=== PATIENT | female | born 1955 | race Caucasian/White ===

== ENCOUNTER 2017-09-07 18:49 | Emergency (ER) | payer BC ==
[~2017-09-07] VITALS: Ht 157.5 cm; Wt 62.1 kg
[~2017-09-07 18:49] MED LIST: CARI350 PO; CETI5; CYCL10 PO; DULO30; FEXO60 PO; HYDACE5 PO; LEVSOD100; LEVSOD88 PO; NAPR500 PO; PROM25 PO; RXPROM25 PO
[2017-09-07] MEDS ORDERED: ACYC400 PO (19:01)
[2017-09-07 19:19] LABS: BASOPHILS ABSOLUTE AUTO 0.01 K/mm3 (0.00-0.23); BASOPHILS PERCENT AUTO 0 % (0-2); EOSINOPHILS ABSOLUTE AUTO 0.07 K/mm3 (0.00-0.68); EOSINOPHILS PERCENT AUTO 1 % (0-6); Hemoglobin 14.4 g/dL (11.5-16.0); IMMATURE GRAN ABSOLUTE AUTO 0.01 K/mm3 (0.00-0.10); IMMATURE GRAN PERCENT AUTO 0 % (0-1); LYMPHOCYTES ABSOLUTE AUTO 2.55 K/mm3 (0.84-5.20); LYMPHOCYTES PERCENT AUTO 45 % (21-46); MONOCYTES ABSOLUTE AUTO 0.37 K/mm3 (0.16-1.47); MONOCYTES PERCENT AUTO 7 % (4-13); Mean Corpuscular HGB 29.4 pg (26.0-34.0); Mean Corpuscular HGB Conc 32.7 g/dL (31.5-36.5); Mean Corpuscular Volume 90 fL (80-100); NEUTROPHILS ABSOLUTE AUTO 2.64 K/mm3 (1.96-9.15); NEUTROPHILS PERCENT AUTO 47 % (41-73); Platelet Count 214 K/mm3 (150-400); RDW Coefficient Variation 11.8 % (11.7-14.2); RDW Standard Deviation 38.8 fL (35.1-46.3); White Blood Cell Count 5.65 K/mm3 (4.00-11.30)
[2017-09-07 19:42] LABS: Troponin I <0.015 ng/mL (0.000-0.040)
[2017-09-07 19:47] LABS: Alanine Aminotransfer (ALT/SGP 43 U/L (12-78); Albumin, Blood 4.1 g/dL (3.4-5.0); Alk Phos 93 U/L (50-136); Anion Gap 7 mmol/L (6-16); Aspartate Aminotrans (AST/SGOT 30 U/L (12-37); Bilirubin, Total 0.3 mg/dL (0.1-1.0); Blood Urea Nitrogen 13 mg/dL (8-24); CO2, Blood 27 mmol/L (21-32); Calcium, Blood 9.5 mg/dL (8.5-10.1); Chloride, Blood 108 mmol/L (98-108); Creatinine, Blood 0.65 mg/dL (0.40-1.00); Globulin, Blood 4.1 g/dL (2.2-4.0); Glomerular Filtration Rate >60 (60-); Glucose, Blood 96 mg/dL (70-99); Potassium, Blood 3.9 mmol/L (3.5-5.5); Sodium, Blood 142 mmol/L (136-145); Total Protein, Blood 8.2 g/dL (6.4-8.2)
== END 2017-09-07 21:02 | disposition home or self-care (01) ==
LOC: ER 18:49
PROVIDERS: Emergency Medicine
DX: R07.9 Chest pain, unspecified (principal); Z88.5 Allergy status to narcotic agent; Z88.8 Allergy status to other drugs, medicaments and biological substances; Z79.899 Other long term (current) drug therapy
CPT/HCPCS: 36415; 71046; 80053; 84484; 85025; 93005; 93010; 99283

== ENCOUNTER → 2018-02-13 | Outpatient (CLI) | payer BC ==
[~2018-02-13] MED LIST changes: +ACYC400 PO
== END ==
LOC: LAB SHORT 16:19 → LAB EV 16:19
DX: J02.9 Acute pharyngitis, unspecified (principal)
CPT/HCPCS: 87070

== ENCOUNTER → 2019-01-23 | Outpatient (CLI) | payer BC | END | disposition home or self-care (01) | LOC: LAB EV 14:58 → LAB SHORT 14:58 | DX: R53.83 Other fatigue (principal) | CPT/HCPCS: 87086 ==

== ENCOUNTER 2023-03-10 08:42 | Day surgery (SDC) | payer MEDICARE | END 2023-03-10 22:42 | disposition home or self-care (01) | LOC: MOI MAM 08:42 | DX: R92.0 Mammographic microcalcification found on diagnostic imaging of breast (principal) | CPT/HCPCS: 19081; A4648 ==

== ENCOUNTER → 2024-06-16 | Outpatient (CLI) | payer OTHER ==
[2024-06-16 16:28] LABS: Free Thyroxine 1.1 ng/dL (0.70-1.60); Thyroid Stimulating Hormone 0.426 uIU/mL (0.360-4.800)
[2024-06-16 17:34] LABS: C-REACTIVE PROTEIN, EXT RANGE <0.290 mg/dL (0.000-0.300)
[2024-06-16 17:45] LABS: Triiodothyronine, Free 2.74 pg/mL (2.18-3.98)
[2024-06-18 05:07] LABS: THYROGLOBULIN ANTIBODY 1.1 IU/mL (0.0-4.0); THYROID PEROXIDASE (TPO) AB 846.6 IU/mL (0.0-9.0)
== END ==
LOC: LAB 16:04 → LAB SHORT 16:04
PROVIDERS: Physician Assistant Surgical
DX: E06.3 Autoimmune thyroiditis (principal); R20.2 Paresthesia of skin
CPT/HCPCS: 84439; 84443; 84481; 85651; 86140; 86376; 86800

== ENCOUNTER → 2024-09-13 | Outpatient (CLI) | payer OTHER | LOC: LAB 07:15 → LAB SHORT 07:15 | PROVIDERS: Internal Medicine Endocrinology, Diabetes & Metabolism | DX: E03.8 Other specified hypothyroidism (principal) | CPT/HCPCS: 83018 ==

== ENCOUNTER 2025-06-23 15:55 | Observation (INO) | payer OTHER ==
[~2025-06-23] VITALS: Ht 157.5 cm; Wt 63.8 kg
[~2025-06-23 15:55] MED LIST changes: -ASPI81CH PO; -ATOR40TA PO; -IBUP400 PO; -LEVOTHYROXINE PO; -METO25ER PO; -NITR.4SL SL
[2025-06-23 16:29] LABS: BASOPHILS ABSOLUTE AUTO 0.03 K/mm3 (0.00-0.23); BASOPHILS PERCENT AUTO 0 % (0-2); EOSINOPHILS ABSOLUTE AUTO 0.03 K/mm3 (0.00-0.68); EOSINOPHILS PERCENT AUTO 0 % (0-6); Hematocrit 42.7 % (33.0-51.0); Hemoglobin 14.1 g/dL (11.5-16.0); IMMATURE GRAN ABSOLUTE AUTO 0.01 K/mm3 (0.00-0.10); IMMATURE GRAN PERCENT AUTO 0 % (0-1); LYMPHOCYTES ABSOLUTE AUTO 3.19 K/mm3 (0.84-5.20); LYMPHOCYTES PERCENT AUTO 39 % (21-46); MONOCYTES ABSOLUTE AUTO 0.54 K/mm3 (0.16-1.47); MONOCYTES PERCENT AUTO 7 % (4-13); Mean Corpuscular HGB Conc 33.0 g/dL (31.5-36.5); Mean Corpuscular Volume 94 fL (80-100); NEUTROPHILS ABSOLUTE AUTO 4.45 K/mm3 (1.96-9.15); NEUTROPHILS PERCENT AUTO 54 % (41-73); NRBC ABSOLUTE 0.00 K/mm3 (0.00-0.02); NRBC Auto 0.0 /100 WBC (0.0-0.2); Platelet Count 221 K/mm3 (150-400); RDW Coefficient Variation 11.9 % (11.7-14.2); RDW Standard Deviation 41.0 fL (35.1-46.3)
[2025-06-23 17:09] LABS: Anion Gap 10.0 mmol/L (3-11); Blood Urea Nitrogen 15.0 mg/dL (8-24); CO2, Blood 24.0 mmol/L (21-32); Calcium, Blood 9.1 mg/dL (8.5-10.1); Chloride, Blood 108.0 mmol/L (98-108); Creatinine, Blood 0.59 mg/dL (0.40-1.00); Glucose, Blood 90.0 mg/dL (70-99); Magnesium, Blood 2.0 mg/dL (1.6-2.4); Potassium, Blood 3.5 mmol/L (3.5-5.5); Sodium, Blood 138.0 mmol/L (136-145)
[2025-06-23 17:49] LABS: Anti-Xa UFH, PHA Monitoring <0.10 IU/mL; Prothrombin Time Results 11.8 Sec (9.7-11.5)
[2025-06-23] MEDS ORDERED: FentaNYL Citrate 50 MCG/ML 2 ML Injection IV PRN (18:00)
[2025-06-23] MEDS ORDERED: Ondansetron HCl 2 MG / ML 2ML Vial IV PRN (18:05)
[2025-06-23] MEDS ORDERED: Heparin Sodium,Porcine/0.5 NS 500 ML IV SCH (18:10)
[2025-06-23] MEDS ORDERED: Heparin Sodium 5000 Units/ML 1ML MDV IV ONE (18:10)
[2025-06-23] MEDS ORDERED: FLU VACC TS2025(65UP)/MF59C/PF 45 MCG/0.5 ML SYRINGE IM SCH (18:50)
[2025-06-23] MEDS ORDERED: NS 1,000 ML IV SCH (19:00)
[2025-06-23 19:01] VITALS: BP 152/84
[2025-06-23 19:29] VITALS: BP 152/81
--- NOTE | 2025-06-23 19:39 | NUR ---
ADMIT TO PCU REPORT RECIEVED FROM [place] BREWSTER AT 1832. PT ARRIVED FROM ED ON [facility] AT 1847 AND WAS ABLE TO TRANSFER INTO BED FROM [address]. HEPARIN GTT INFUSING PER EMAR, VERIFIED W/ ER NURSE. PT HAS AND BELONGINGS WITH HER. SHE IS A&OX4, COOPERATIVE W/ CARE. SATTING > 95% ON RA. SR 70s, MILD HTN. DURING IV ATTEMPT, PT BEGAN COMPLAINING OF 8/10 CHEST PAIN BUT STATED THAT IT BEGAN TO SUBSIDE AFTER IV ATTEMPT WAS FINISHED. [facility] BREWSTER CAME INTO ROOM TO HELP GET PT SITUATED AND RECIEVED BEDSIDE REPORT. SEE NOTES FOR UPDATES.
--- NOTE | 2025-06-23 19:45 | NUR ---
ASSUMPTION OF CARE: THIS RN TO ASSUME CARE OF PT AT 1900. PT GETTING SETTLED INTO ROOM A NEW ADMIT FROM THE ED. PT SITTING AT SIDE OF BED ANXIOUS WHILE STAFF ARE TRYING TO GET A SECOND LINE ON HER. IV UNSUCCESSFUL. PT REPORTS RELIEF IN CP APPROX 10 MINUTES AFTER IV ATTEMPT. THIS RN WAS ABLE TP OBTAIN A SECOND LINE AND DRAW BLOOD FOR REPEAT TROPONIN. PT CONTINUES TO DENY ANY CP. SINUS ON THE MONITOR. SBP IN THE 150'S OTHERWISE VSS. ON HEPARIN GTT.
[2025-06-23] MEDS ORDERED: IBUP400 PO ×2 (21:23)
[2025-06-23] MEDS ORDERED: LEVOTHYROXINE PO ×2 (21:25)
[2025-06-23 21:37] VITALS: BP 1339/75; BP 139/75
[2025-06-23 23:52] VITALS: BP 141/73
[2025-06-24] VITALS (11 sets, daily range): BP systolic 130–144; BP diastolic 72–94
[2025-06-24] MEDS ORDERED: Lidocaine 4% 1 Patch TOP PRN (00:25)
[2025-06-24] MEDS ORDERED: Dose Adjust by Pharmacy XX STA ×2 (01:28→09:03)
--- NOTE | 2025-06-24 03:45 | NUR ---
UPDATE: PT REPORTING A PAIN IN HER L SHOULDER THAT SHE REPORTS SHE NORMALLY HAS AT BASELINE BUT "JUST FEELS DIFFERENT" PAIN NOT RELIEVED WITH LIDOCANE PATCH. ALSO REPORTING BURNING IN HER L ARM FROM HER IV. STATS "SOMETHING JUST DOESN'T FEEL RIGHT. REPEAT EKG OBTAINED AND PT GIVEN 1 NITRO. REPORTS RELIEF OF PAIN IN HER SHOULDER AND ARM AFTER RECIEVING NITRO.
[2025-06-24 04:27] LABS: BASOPHILS ABSOLUTE AUTO 0.01 K/mm3 (0.00-0.23); BASOPHILS PERCENT AUTO 0 % (0-2); EOSINOPHILS ABSOLUTE AUTO 0.06 K/mm3 (0.00-0.68); EOSINOPHILS PERCENT AUTO 1 % (0-6); Hematocrit 37.7 % (33.0-51.0); Hemoglobin 13.0 g/dL (11.5-16.0); IMMATURE GRAN ABSOLUTE AUTO 0.01 K/mm3 (0.00-0.10); IMMATURE GRAN PERCENT AUTO 0 % (0-1); LYMPHOCYTES ABSOLUTE AUTO 3.08 K/mm3 (0.84-5.20); LYMPHOCYTES PERCENT AUTO 48 % (21-46); MONOCYTES ABSOLUTE AUTO 0.47 K/mm3 (0.16-1.47); MONOCYTES PERCENT AUTO 7 % (4-13); Mean Corpuscular HGB Conc 34.5 g/dL (31.5-36.5); Mean Corpuscular Volume 93 fL (80-100); NEUTROPHILS ABSOLUTE AUTO 2.74 K/mm3 (1.96-9.15); NEUTROPHILS PERCENT AUTO 43 % (41-73); NRBC ABSOLUTE 0.00 K/mm3 (0.00-0.02); NRBC Auto 0.0 /100 WBC (0.0-0.2); Platelet Count 170 K/mm3 (150-400); RDW Coefficient Variation 11.7 % (11.7-14.2); RDW Standard Deviation 40.3 fL (35.1-46.3)
[2025-06-24 04:47] LABS: Alanine Aminotransfer (ALT/SGP 45.0 U/L (12-78); Albumin, Blood 3.1 g/dL (3.4-5.0); Albumin/Globulin Ratio 1.0 (0.8-1.8); Anion Gap 8.0 mmol/L (3-11); Aspartate Aminotrans (AST/SGOT 33.0 U/L (12-37); Bilirubin, Total 0.9 mg/dL (0.1-1.0); Blood Urea Nitrogen 10.0 mg/dL (8-24); CO2, Blood 24.0 mmol/L (21-32); Calcium, Blood 8.7 mg/dL (8.5-10.1); Chloride, Blood 114.0 mmol/L (98-108); Creatinine, Blood 0.51 mg/dL (0.40-1.00); Globulin, Blood 3.2 g/dL (2.2-4.0); Glucose, Blood 100.0 mg/dL (70-99); Potassium, Blood 3.7 mmol/L (3.5-5.5); Sodium, Blood 142.0 mmol/L (136-145); Total Protein, Blood 6.3 g/dL (6.4-8.2)
--- NOTE | 2025-06-24 05:19 | NUR ---
SHIFT SUMMARY: PT A&OX. FOLLOWS COMMANDS AND MAKES NEEDS KNOWN TO STAFF. PT FREQUENTLY NEEDED TO USE THE BATHROOM AND HAD A GOOD AMOUNT OF URINARY OUTPUT. PT HAD AN EPISODE OF CP. SEE PREVIOUS NOTE FOR DETAILS. PT HAS NEED NPO AFTER MIDNIGHT WITH PLAN FOR ANGIOGRAM TODAY. NO OTHER SIGNIFICANT EVENTS HAPPENED DURING THIS SHIFT. WILL CONTINUE TO CARE FOR PT TILL END OF SHIFT.
--- NOTE | 2025-06-24 07:26 | NUR ---
ASSUMPTION NOTE: THIS RN TO ASSUME CARE OF PATIENT. PATIENT IS ALERT AND ORIENTED X4 & COOPERATIV WITH HER CARE. IS ABLE TO MAKE NEEDS KNOWN & USES CALL LIGHT APPROPRIATELY. ON TELE SHOWING SINUS KATHLEEN TO SINUS RYTHM 50-70'S. PATIENT HAS HEAPRIN DRIP RUNNING AT 14U/KG 17.6ML/HR. PATIENT DENIED ANY CHEST PAIN/PRESSURE OR ANY PAIN AT THIS TIME. SATTING >92% ON ROM AIR. PATIENT AWARE ANGIO GRAM WILL HAPPEN TODAY WE DO NOT HAVE A TIME FOR IT. PATIENT REQUESTED HER LEVOTHYROXINE THIS MORNING BUT NOTIFIED NIGT SHIFT RN THAT HER DOSE ON SUNDAYS IS HIGHER. THIS RN TO CALL PHARMACY TO VERIFY & WILL CALL MD REGARDING THE HIGHER DOSE NEEDING TO BE SHOWN IN EMAR. PATIENT HAS CALL LIGHT WITHIN REACH, BED IN LOWEST LOCKED POSITION & STATING NOTHING ELSE IS NEEDED AT THIS TIME.
--- NOTE | 2025-06-24 11:19 | NUR ---
MDS ROUNDED: MD CHOWDARY & BHAVYA ROUNDED AND SPOKE TO PATIENT REGARDING HAVING AN ANGIOGRAM THIS MORNING. PATIENT IS AGREEABLE AND SIGNED CONSENT FORM. PATIENT CONTINUES TO HAVE HEPARIN RUNNING AT 13ML/HR AND AWAITING FOR THE TEAM TO COME GRAB HER FOR THE ANGIOGRAM.
[2025-06-24] MEDS ORDERED: Verapamil HCL 2.5 MG/ML 2ML Injection ONE (11:52)
[2025-06-24] MEDS ORDERED: NS 250 ML IV ONE (11:52)
[2025-06-24] MEDS ORDERED: Nitroglycerin 2 MG/20 ML BTL ONE (11:53)
[2025-06-24] MEDS ORDERED: NS 1,000 ML IV ONE ×2 (11:53→12:04)
[2025-06-24] MEDS ORDERED: Heparin Sodium 1000 Units/ML 10ML MDV ONE ×2 (11:53→12:03)
[2025-06-24] MEDS ORDERED: Midazolam HCl 1MG / ML 2ML Vial ONE (12:03)
[2025-06-24] MEDS ORDERED: FentaNYL Citrate 50 MCG/ML 2 ML Injection ONE (12:03)
--- NOTE | 2025-06-24 12:09 | NUR ---
CARE NOTE THIS RN NOTIFIED PHARMACY THAT PT IS GOING TO [facility]ED[facility] AND HEPARIN DRIP IS ON PAUSE AT APPROX. 1208.
--- NOTE | 2025-06-24 13:18 | NUR ---
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 PAPER REWINDER OPERATOR, NO INTERVENTIONS WERE DONE, VESSELS WERE CLEAR. PATIENT ACCESS SITE IS RIGHT RADIAL WITH 10CC'S IN THE BAND. PATIENT ENDORSED SOME NUMBESS IN SOME OF HER FINGERS ON THAT RIGHT HAND, CAP REFILL LESS THAN 3 SECONDS, SPO2 ON THAT HAND AND SATTING GREAT. PATIENT IS ABLE TO EAT, REGULAR DIET NOW.
[2025-06-24] MEDS ORDERED: ATOR40TA PO ×2 (14:32)
[2025-06-24] MEDS ORDERED: METO25ER PO ×2 (14:32)
[2025-06-24] MEDS ORDERED: ASPI81CH PO ×2 (14:32)
[2025-06-24] MEDS ORDERED: NITR.4SL SL ×2 (14:33)
[2025-06-24 14:38] LABS: CHOL/HDL RATIO 2.5; Cholesterol 151 mg/dL (50-200); HDL Cholesterol 60 mg/dL (>39); LDL/HDL RATIO 1.2; Low Density Lipoprotein Chol 71 mg/dL (0-110); Triglycerides 101 mg/dL (30-160); Very Low Density Lipoprot Chol 20 mg/dL (6-32)
--- NOTE | 2025-06-24 17:11 | NUR ---
DISCHARGE NOTE: PATIENT IS ALERT AND ORIETNED X4 & COOPERATIVE WITH HER CARE. SATTING >92% ON ROOM AIR. TELE TAKEN OFF, IV'S TAKEN OUT. RIGHT RADIAL SITE TEGADERM WAS PLACED AND ARM BOARD PLACED ON TOP. PATIENT AWARE AND GAVE VERBAL UNDERSTANDING NOT TO SOAK ARM IN TUB OR HOT TUB, SHOWER IS OKAY OR TO LIFT ANYTHING HEAVIER THAN 10LBS. PATIENT TOOK DISCHARGE PACKET WITH ALL PERSONAL BELONGINGS WITH HER. WAS WHEELED OUT TO HER CAR VIA WHEELCHAIR.
== END 2025-06-24 17:56 | disposition home or self-care (01) ==
LOC: ER 15:55 → PCU 15:56
PROVIDERS: Emergency Medicine; Family Medicine; ADMIT Internal Medicine
DX: I21.4 Non-ST elevation (NSTEMI) myocardial infarction (principal); E03.9 Hypothyroidism, unspecified; I25.10 Atherosclerotic heart disease of native coronary artery without angina pectoris; Z88.5 Allergy status to narcotic agent; Z88.8 Allergy status to other drugs, medicaments and biological substances; R07.89 Other chest pain
CPT/HCPCS: 36415; 71045; 76937; 80048; 80053; 80061; 83735; 83880; 84100; 84484; 85025; 85520; 85610; 85730; 93005; 93010; 93306; 93454; 96365; 96366; 96374; 96376; 99152; 99285-25; A9270; C1769; C1887; C1894; G0378; J1644; J2250; J3010; J7030; J7050; Q9967

== ENCOUNTER → 2025-06-23 | Outpatient (CLI) | payer OTHER ==
[~2025-06-23] MED LIST changes: +ASPI81CH PO; +ATOR40TA PO; +IBUP400 PO; +LEVOTHYROXINE PO; +METO25ER PO; +NITR.4SL SL
[2025-06-23 15:18] LABS: BASOPHILS ABSOLUTE AUTO 0.03 K/mm3 (0.00-0.23); BASOPHILS PERCENT AUTO 0 % (0-2); EOSINOPHILS ABSOLUTE AUTO 0.07 K/mm3 (0.00-0.68); EOSINOPHILS PERCENT AUTO 1 % (0-6); Hematocrit 44.9 % (33.0-51.0); Hemoglobin 15.1 g/dL (11.5-16.0); IMMATURE GRAN ABSOLUTE AUTO 0.03 K/mm3 (0.00-0.10); IMMATURE GRAN PERCENT AUTO 0 % (0-1); LYMPHOCYTES ABSOLUTE AUTO 2.89 K/mm3 (0.84-5.20); LYMPHOCYTES PERCENT AUTO 37 % (21-46); MONOCYTES ABSOLUTE AUTO 0.46 K/mm3 (0.16-1.47); MONOCYTES PERCENT AUTO 6 % (4-13); Mean Corpuscular HGB Conc 33.6 g/dL (31.5-36.5); Mean Corpuscular Volume 94 fL (80-100); NEUTROPHILS ABSOLUTE AUTO 4.33 K/mm3 (1.96-9.15); NEUTROPHILS PERCENT AUTO 55 % (41-73); NRBC ABSOLUTE 0.00 K/mm3 (0.00-0.02); NRBC Auto 0.0 /100 WBC (0.0-0.2); Platelet Count 209 K/mm3 (150-400); RDW Coefficient Variation 11.8 % (11.7-14.2); RDW Standard Deviation 40.8 fL (35.1-46.3)
[2025-06-23 15:31] LABS: Alanine Aminotransfer (ALT/SGP 55.0 U/L (12-78); Albumin, Blood 4.1 g/dL (3.4-5.0); Albumin/Globulin Ratio 1.0 (0.8-1.8); Anion Gap 14.0 mmol/L (3-11); Aspartate Aminotrans (AST/SGOT 37.0 U/L (12-37); Bilirubin, Total 0.6 mg/dL (0.1-1.0); Blood Urea Nitrogen 16.0 mg/dL (8-24); CO2, Blood 27.0 mmol/L (21-32); Calcium, Blood 9.4 mg/dL (8.5-10.1); Chloride, Blood 106.0 mmol/L (98-108); Creatinine, Blood 0.71 mg/dL (0.40-1.00); Globulin, Blood 4.0 g/dL (2.2-4.0); Glucose, Blood 91.0 mg/dL (70-99); Potassium, Blood 3.8 mmol/L (3.5-5.5); Sodium, Blood 143.0 mmol/L (136-145); Total Protein, Blood 8.1 g/dL (6.4-8.2)
== END ==
LOC: LAB 15:14 → LAB SHORT 15:14
DX: R07.89 Other chest pain (principal)
CPT/HCPCS: 80053; 84484; 85025

== ENCOUNTER 2025-07-07 01:41 | Emergency (ER) | payer OTHER ==
[~2025-07-07] VITALS: Ht 157.5 cm; Wt 59.9 kg
[~2025-07-07 01:41] MED LIST changes: +ASPI81CH PO; +ATOR40TA PO; +IBUP400 PO; +LEVOTHYROXINE PO; +METO25ER PO; +NITR.4SL SL
[2025-07-07 02:58] LABS: Alanine Aminotransfer (ALT/SGP 55.0 U/L (12-78); Albumin, Blood 3.6 g/dL (3.4-5.0); Albumin/Globulin Ratio 0.9 (0.8-1.8); Anion Gap 9.0 mmol/L (3-11); Aspartate Aminotrans (AST/SGOT 37.0 U/L (12-37); Bilirubin, Total 0.4 mg/dL (0.1-1.0); Blood Urea Nitrogen 14.0 mg/dL (8-24); CO2, Blood 25.0 mmol/L (21-32); Calcium, Blood 9.3 mg/dL (8.5-10.1); Chloride, Blood 110.0 mmol/L (98-108); Creatinine, Blood 0.75 mg/dL (0.40-1.00); Globulin, Blood 4.0 g/dL (2.2-4.0); Glucose, Blood 112.0 mg/dL (70-99); Potassium, Blood 3.7 mmol/L (3.5-5.5); Sodium, Blood 140.0 mmol/L (136-145); Total Protein, Blood 7.6 g/dL (6.4-8.2)
[2025-07-07 03:03] LABS: BASOPHILS ABSOLUTE AUTO 0.03 K/mm3 (0.00-0.23); BASOPHILS PERCENT AUTO 1 % (0-2); EOSINOPHILS ABSOLUTE AUTO 0.07 K/mm3 (0.00-0.68); EOSINOPHILS PERCENT AUTO 1 % (0-6); Hematocrit 42.2 % (33.0-51.0); Hemoglobin 14.6 g/dL (11.5-16.0); IMMATURE GRAN ABSOLUTE AUTO 0.01 K/mm3 (0.00-0.10); IMMATURE GRAN PERCENT AUTO 0 % (0-1); LYMPHOCYTES ABSOLUTE AUTO 2.20 K/mm3 (0.84-5.20); LYMPHOCYTES PERCENT AUTO 38 % (21-46); MONOCYTES ABSOLUTE AUTO 0.54 K/mm3 (0.16-1.47); MONOCYTES PERCENT AUTO 9 % (4-13); Mean Corpuscular HGB Conc 34.6 g/dL (31.5-36.5); Mean Corpuscular Volume 93 fL (80-100); NEUTROPHILS ABSOLUTE AUTO 3.02 K/mm3 (1.96-9.15); NEUTROPHILS PERCENT AUTO 51 % (41-73); NRBC ABSOLUTE 0.00 K/mm3 (0.00-0.02); NRBC Auto 0.0 /100 WBC (0.0-0.2); Platelet Count 207 K/mm3 (150-400); RDW Coefficient Variation 11.6 % (11.7-14.2); RDW Standard Deviation 39.2 fL (35.1-46.3)
[2025-07-07 03:30] VITALS: BP 148/73
== END 2025-07-07 03:51 | disposition home or self-care (01) ==
LOC: ER 01:41
PROVIDERS: Student in an Organized Health Care Education/Training Program
DX: R07.9 Chest pain, unspecified (principal); Z88.5 Allergy status to narcotic agent; Z88.8 Allergy status to other drugs, medicaments and biological substances; Z79.82 Long term (current) use of aspirin; Z79.899 Other long term (current) drug therapy
CPT/HCPCS: 71045; 80053; 83690; 84484; 85025; 93005; 93010; 99285-25